=== PATIENT | male | born 1980 | race Caucasian/White ===

== ENCOUNTER 2019-04-20 09:38 | Day surgery (SDC) | payer BC ==
[~2019-04-20] VITALS: Ht 177.8 cm; Wt 81.7 kg
[2019-04-20] MEDS ORDERED: HYGROTON 2525 MG/TAB PO (10:00)
[2019-04-20 10:17] VITALS: BP 129/93; PULSE 70; TEMP 97.6
[2019-04-20 11:55] VITALS: BP 128/92; PULSE 81; TEMP 98.8
--- NOTE | 2019-04-20 11:55 | NUR ---
TO BAY 2 PER CART FROM ENDOSCOPY. ALERT ORIENTED X3, TALKING TO STAFF AND . RECEIVED WATER.
[2019-04-20 12:10] VITALS: BP 126/83; PULSE 70
--- NOTE | 2019-04-20 12:10 | NUR ---
DR SWAN INTO TALK WITH PATIENT AND HIS . TOLERATED PO WELL.
--- NOTE | 2019-04-20 12:25 | NUR ---
RECEIVED DISCHARGE INSTRUCTIONS AND VERBALIZED UNDERSTANDING. DISCONTINUED IV AND INT- CATHETER INTACT
--- NOTE | 2019-04-20 12:30 | NUR ---
DRESSED AND WENT TO BATHROOM WENT TO GET THE CAR.
--- NOTE | 2019-04-20 12:40 | NUR ---
DISCHARGED PER WC BY NURSING STAFF TO PRIVATE CAR IN CARE OF [facility]IN[facility].
== END 2019-04-20 12:46 | disposition home or self-care (01) ==
LOC: SDCO 09:38
DX: K92.1 Melena (principal); K64.4 Residual hemorrhoidal skin tags; K62.89 Other specified diseases of anus and rectum
CPT/HCPCS: J1200; J2250; J2405; J3010; J7030

== ENCOUNTER 2021-12-26 12:28 | Emergency (ER) | payer BC ==
[~2021-12-26] VITALS: Ht 177.8 cm; Wt 81.8 kg
[~2021-12-26 12:28] MED LIST: HYGROTON 2525 MG/TAB PO
[2021-12-26 12:38] VITALS: BP 106/71; TEMP 97.2
[2021-12-26] MEDS ORDERED: NORCO 325 MG-51 TAB PO (13:19)
[2021-12-26] MEDS ORDERED: CRUTCHES MC (13:56)
[2021-12-26 14:20] VITALS: PULSE 88
== END 2021-12-26 14:20 | disposition home or self-care (01) ==
LOC: COL.ER 12:28
DX: S89.92XA Unspecified injury of left lower leg, initial encounter (principal); W22.8XXA Striking against or struck by other objects, initial encounter; Y93.71 Activity, boxing